=== PATIENT | female | born 1960 | race Caucasian/White ===

== ENCOUNTER → 2017-06-23 | Outpatient (CLI) | payer OTHER ==
--- NOTE | 2017-06-23 13:15 | RADIOLOGY REPORT PS360 ---
US RUQ-(ABD LTD)1ORGAN/QUAD/FU Ordering Physician: Ryan Cruz MD Patient Age: 56 years: Female HISTORY: ABDOMINAL PAIN TECHNIQUE: Ultrasound right upper quadrant COMPARISON :None FINDINGS Pancreas unremarkable. Liver. No focal lesions. No biliary ductal dilatation. A question some early fatty change liver. Unimpressive but noted Gallbladder. No gallstones trace sludge and debris at gallbladder. Unimpressive. No gallbladder wall thickening Common duct normal caliber measuring 4.5 mm at hilum of liver. Right kidney 11.6cm length.. No hydronephrosis nor mass WNL with only question some borderline cortical thinning IMPRESSION: No significan appearing t findings. . Gallbladder.: No gallstones. Trace sludge or gallbladder . Common duct normal.
== END ==
LOC: RAD 08:39
DX: R10.11 Right upper quadrant pain (principal)